=== PATIENT | female | born 1960 | race Caucasian/White ===

== ENCOUNTER → 2016-07-10 | Outpatient (CLI) | payer OTHER ==
--- NOTE | 2016-07-10 13:22 | US ---
Thyroid Ultrasound History: Right neck fullness, family history of Raul thyroiditis and goiter. Comparison: None available. Technique: Longitudinal and transverse ultrasound imaging of the thyroid gland. Findings: The right lobe of the thyroid measures 1.5 x 1.3 x 3.1 cm. A 1 mm hypoechoic nodule in the inferior right thyroid could represent a cyst and is of doubtful clinical significance. The thyroid is minimally heterogeneous. The left lobe of the thyroid measures 1.3 x 1.0 x 3.1 cm. The left lobe of the thyroid is minimally heterogeneous with no dominant nodules identified. The isthmus is normal. Impression: No visible etiology for the patient's right neck fullness with a tiny right thyroid nodul e of doubtful clinical significance.
== END ==
LOC: FIMAGING 12:01
DX: R22.1 Localized swelling, mass and lump, neck (principal); Z83.49 Family history of other endocrine, nutritional and metabolic diseases